=== PATIENT | female | born 1990 | race Two or more races ===

== ENCOUNTER 2021-11-13 16:05 | Emergency (ER) | payer SELFPAY | END 2021-11-13 17:00 | disposition home or self-care (01) | LOC: VM.ED 16:05 | DX: J02.9 Acute pharyngitis, unspecified (principal); B37.3 Candidiasis of vulva and vagina; E11.9 Type 2 diabetes mellitus without complications; Z79.899 Other long term (current) drug therapy | CPT/HCPCS: 99282 ==

== ENCOUNTER 2021-11-28 15:12 | Emergency (ER) | payer OTHER | END 2021-11-28 15:45 | disposition home or self-care (01) | LOC: VM.ED 15:12 | DX: M54.2 Cervicalgia (principal); E11.9 Type 2 diabetes mellitus without complications; V89.2XXA Person injured in unspecified motor-vehicle accident, traffic, initial encounter | CPT/HCPCS: 99283 ==